=== PATIENT | female | born 1955 | race Hispanic/Latino ===

== ENCOUNTER 2017-01-06 21:24 | Emergency (ER) | payer BC ==
[2017-01-06 21:51] VITALS: BP 134/80; PULSE 79; TEMP 98.1; O2SAT 98
--- NOTE | 2017-01-06 22:19 | C.PDOC ---
History Of Present Illness Patient is a 61 year old female who presents to the ER with a complaint of a lump to the right foot for the past month. Patient was seen by PMD and had a doppler study done last week that was negative. Patient reports that today, her 2 year old grandson stepped on her foot at site of lump which concerned her and is requesting evaluation. Denies any pain, numbness, weakness or redness Time Seen by Provider: 01/06/17 22:06 Chief Complaint (Nursing): Lower Extremity Problem/Injury History Per: Patient History/Exam Limitations: no limitations Onset/Duration Of Symptoms: Days Current Symptoms Are (Timing): Gone Recent travel outside of the [place]: No Past Medical History Reviewed: Historical Data, Nursing Documentation, Vital Signs Vital Signs: Last Vital Signs Temp 98.1 F 01/06/17 21:47 Pulse 79 01/06/17 21:47 Resp 20 01/06/17 22:35 BP 134/80 01/06/17 21:47 Pulse Ox 98 01/07/17 00:33 - Medical History PMH: No Chronic Diseases Surgical History: No Surg Hx Family History: States: Unknown Family Hx - Social History Hx Tobacco Use: No Hx Alcohol Use: No Hx Substance Use: No - Immunization History Hx Tetanus Toxoid Vaccination: No Hx Influenza Vaccination: No Hx Pneumococcal Vaccination: No Review Of Systems Musculoskeletal: Negative for: Leg Pain, Foot Pain Physical Exam - Physical Exam Appears: Well, Non-toxic Skin: Normal Color, Warm, Dry Head: Atraumatic, Normacephalic Eye(s): bilateral: Normal Inspection, PERRL Oral Mucosa: Moist Extremity: No Tenderness, Capillary Refill (Normal), No Deformity, No Swelling, Other (2x1cm non-erythematous mobile mass to right proximal mid foot. No ecchymosis. No fluctuant mass) Pulses: Left Dorsalis Pedis: Normal, Right Dorsalis Pedis: Normal Neurological/Psych: Oriented x3, Normal Speech, Normal Cognition ED Course And Treatment O2 Sat by Pulse Oximetry: 98 (Room air) Pulse Ox Interpretation: Normal Progress Note: Patient was reassured that no abnormalities could be found in her foot. Patient advised to follow up with ply bander. Disposition Counseled Patient/Family Regarding: Diagnosis, Need For Followup, Rx Given - Disposition Disposition: HOME/ ROUTINE Disposition Time: 22:17 Condition: STABLE Additional Instructions: Please follow up with PMD Leg elevation Apply ICE to area Follow up with podiatry Return to ER if worse Instructions: Ganglion Cysts (ED) - Clinical Impression Clinical Impression: Ganglion cyst of right foot - Scribe Statement The provider has reviewed the documentation as recorded by the Mathewibdo Mendoza All medical record entries made by the Mathewibdo were at my direction and personally dictated by me. I have reviewed the chart and agree that the record accurately reflects my personal performance of the history, physical exam, medical decision making, and the department course for this patient. I have also personally directed, reviewed, and agree with the discharge instructions and disposition.
[2017-01-06 22:36] VITALS: RESP 20
== END 2017-01-06 22:35 | disposition home or self-care (01) ==
LOC: C.ER 21:24
DX: M67.471 Ganglion, right ankle and foot (principal)